=== PATIENT | male | born 1955 | race Caucasian/White ===

== ENCOUNTER 2021-04-20 07:37 | Outpatient (CLI) | payer MEDICARE, OTHER, SELFPAY ==
--- NOTE | 2021-04-20 10:15 | WPDPFTINT ---
PFT Procedure Performed PFT Procedure Performed Spirometry with Pre/Post Bronchodilator Plethysmography (Lung Vol) Diffusing Cap (DLCO) Flow Vol Loop PFT Interpretation Lung volumes were measured with the body plethysmography method. Lung volumes are unremarkable. Spirometry showed normal FVC and FEV1, a diminished FEV1 to FVC ratio 66%, and diminished mid expiratory flow rates at 39% predicted. Following administration of a bronchodilator there was significant increase in the FEV1. Impression: Mild obstructive airway disease in the form of small airway disease and significant response to bronchodilators on this testing.
== END 2021-04-20 07:38 | disposition home or self-care (01) ==
LOC: ANHPFT 07:38
PROVIDERS: PCP Internal Medicine; Visit Provider Internal Medicine Critical Care Medicine
DX: Z72.0 Tobacco use (principal); Z71.6 Tobacco abuse counseling; R94.2 Abnormal results of pulmonary function studies; J44.9 Chronic obstructive pulmonary disease, unspecified
CPT/HCPCS: 94060; 94726; 94729

== ENCOUNTER 2022-04-27 07:47 | Outpatient (CLI) | payer MEDICARE, OTHER, SELFPAY ==
--- NOTE | ~2022-04-27 | CT_ITS ---
EXAMINATION: CT lung screening DATE: 04/27/2022 08:05 INDICATION: ct lung screening TECHNIQUE: Computed tomography (CT) of the chest was performed without intravenous contrast. Addition al 3D reconstructions utilizing coronal maximum intensity projection (MIP) were performed. Automated exposure control and iterative reconstruction technique were employed. The dose-length product was 22 2.30 mGy-cm. COMPARISON: None FINDINGS: No suspicious pulmonary nodules, pulmonary edema, pneumonia or pleural effusion. There is diffuse mil d bronchial wall thickening. Heart size is normal. Atherosclerotic coronary artery calcific lesion. C hange of prior mediastinal main coronary artery bypass grafting. Stenting at the right coronary arter y. No pericardial effusion. Thoracic aorta is normal in caliber. No pathologically enlarged thoracic lymphadenopathy. Diffuse hepatic steatosis. Mild thoracic spondylosis with mild anterior wedging at T 11-L1. IMPRESSION: 1. Lung-RADS category 1: Negative. Continue annual screening with noncontrast low-dose chest CT in 12 months. Reviewed, dictated and finalized at location B. EDICAL ELECTRONICS TECHNICIAN IMPRESSION: 1. Lung-RADS category 1: Negative. Continue annual screening with noncontrast l ow-dose chest CT in 12 months.
== END 2022-04-27 07:48 | disposition home or self-care (01) ==
LOC: CHSIMG 07:49
PROVIDERS: PCP Internal Medicine; Visit Provider Nurse Practitioner Family
DX: Z87.891 Personal history of nicotine dependence (principal)
CPT/HCPCS: 71271

== ENCOUNTER 2022-06-01 08:10 | Outpatient (CLI) | payer MEDICARE, OTHER, SELFPAY ==
--- NOTE | ~2022-06-01 | XR_ITS ---
Lumbosacral Spine: AP and lateral views Clinical History: Pain Findings: The normal lordotic curve is maintained. The vertebral bodies and posterior elements are i ntact. The intervertebral disc spaces are preserved. The sacroiliac joints are normally outlined. Impression: No significant abnormality. Reviewed, dictated and finalized at [facility]. OPERATIONS ADVISOR Impression: No significant abnormality.
== END 2022-06-01 08:11 | disposition home or self-care (01) ==
LOC: CHSIMG 08:13
PROVIDERS: PCP Internal Medicine; Visit Provider Internal Medicine
DX: M54.50 Low back pain, unspecified (principal)
CPT/HCPCS: 72100

== ENCOUNTER 2022-07-26 00:25 | Day surgery (SDC) | payer MEDICARE, SELFPAY ==
[2022-07-14 14:42] VITALS: BMI 34.2
[2022-07-26 06:25] VITALS: BP 116/83; PULSE 62; RESP 20; TEMP 36.4; O2SAT 98; BMI 34.4
[2022-07-26] MEDS: LACTATED RINGERS 1,000 ML 150 ML IV CONT (06:31)
--- NOTE | 2022-07-26 07:14 | WPDANESEPPF ---
Anes - Initial Pre Proc Eval Procedure: Operation Date: 07/26/22 07:30 Proposed Procedures p Colonoscopy - Marv Bledsoe MD Date/Time: 07/26/22 07:14 Surgeon: Marv Bledsoe MD Pre Op Diagnosis: hx colon polyps Patient Data Age: 67 Gender: M Height: 1.68 m Weight: 96.8 kg Last Vital Signs Temp 97.6 F 07/26/22 06:25 Pulse 62 07/26/22 06:25 Resp 20 07/26/22 06:25 BP 116/83 07/26/22 06:25 Pulse Ox 98 07/26/22 06:25 O2 Del Method Room Air 07/26/22 06:25 Allergies Allergy/AdvReac Type Severity Reaction Status Date / Time No Known Allergies Allergy Verified 07/26/22 06:22 Home Medications Medication Instructions Recorded Confirmed Type aspirin 325 mg tablet 325 mg PO DAILY 02/10/21 07/14/22 History fenofibric acid (choline) 135 mg 135 mg PO DAILY 02/10/21 07/14/22 History capsule,delayed release hydrocodone 5 mg-acetaminophen 325 1 tablet PO BID 02/10/21 07/14/22 History mg tablet icosapent ethyl 0.5 gram capsule 0.5 g PO BID 02/10/21 07/14/22 History (Vascepa) isosorbide mononitrate 30 mg 30 mg PO DAILY 02/10/21 07/14/22 History tablet,extended release 24 hr lisinopril 10 mg tablet 10 mg PO DAILY 02/10/21 07/14/22 History metoprolol tartrate 25 mg tablet 25 mg PO BID 02/10/21 07/14/22 History qqlywrnx-mda-manwp acid 300 1 tablet PO DAILY 02/10/21 07/14/22 History mcg-lycopene 600 mcg-lutein 300 mcg tablet (Centrum Silver Men) rosuvastatin 40 mg tablet 40 mg PO DAILY 02/10/21 07/14/22 History albuterol sulfate 0.63 mg/3 mL 0.63 mg (3 mL) inhalation Q6H PRN 03/08/22 07/14/22 Rx solution for nebulization shortness of breath or wheezing 1 month #360 mL montelukast 10 mg tablet See Rx Instructions .Route 04/05/22 07/14/22 Rx .COMPLEX #90 tabs prednisone 10 mg tablet 10 mg PO DIRECTED #34 tabs 04/23/22 07/14/22 Rx albuterol sulfate 90 mcg/actuation 1 - 2 inh inhalation Q4-6H PRN 05/17/22 07/14/22 Rx aerosol inhaler shortness of breath or wheezing 90 days #25.5 grams gabapentin 600 mg tablet 600 mg PO TID 07/14/22 07/14/22 History lansoprazole 30 mg capsule,delayed 30 mg PO DAILY 07/14/22 07/14/22 History release sodium,potassium,mag sulfates 17.5 See Rx Instructions PO .COMPLEX 07/14/22 07/14/22 Rx gram-3.13 gram-1.6 gram oral soln #354 mL (Suprep Bowel Prep Kit) Patient hx anesthesia problems: none Family hx anesthesia problems: none Results Review: All pre-operative results and documents have been reviewed as part of the pre-operative evaluation. [facility] Past Medical History Medical History Asthma Heart disease Family History Family History Father Heart disease Sibling Heart disease Social History Social History (Updated 04/23/22 @ 09:01 by Cammy Alvarez MA) Smoking packs per day: 1 Smoking cigarettes per day: 20.0 Years smoked: 50 Smoking pack-years: 50.00 Smoking status: Current some day smoker Tobacco type: cigarettes Second hand tobacco smoke exposure: Yes Alcohol intake: former Drinks per week: 3 Alcohol use details: Beer Substance use: unknown Substance use type: does not use Living arrangements: with family Occupation/Education: retired Spiritual care concerns: No Anes - Eval Final PreProcedure Day of Procedure 07/26/22 07:14 Patient weight: obese Heart: regular rate and rhythm Lungs: clear to auscultation Neurological: alert and oriented Last oral intake: >/= 8 hours ASA classification: III Emergent: no Anesthetic plan: proceed Anesthesia type and monitoring: general GIVS and standard monitoring Results Review: All pre-operative results and documents have been reviewed as part of the pre-operative evaluation. Informed Consent: The patient's anesthetic plan and its attendant risks and benefits were discussed with the patient/family/POA. Questions w
[2022-07-26 07:44] VITALS: BP 116/83; PULSE 55; RESP 18; TEMP 36.4; O2SAT 100
--- NOTE | 2022-07-26 07:44 | PM.HPGS ---
History of Present Illness History of Present Illness Consent: Risks, benefits, and alternatives have been discussed and questions answered. Patient agrees to proceed with procedure. Chief complaint: hx colon polyps Narrative: Ozzie Shirley is a 67 year old male Presents for screening colonoscopy. Patient's current weight appetite bowel movements are normal. Patient denies abdominal pain. He has had no bleeding. Family history is noncontributory. Previous colonoscopy 2017 revealed a benign hyperplastic colon polyp. Review of Systems Review of Systems: Review of systems is noncontributory. [facility] Past Medical History Medical History Asthma Heart disease Family History Family History Father Heart disease Sibling Heart disease Social History Social History (Updated 04/23/22 @ 09:01 by Cammy Alvarez MA) Smoking packs per day: 1 Smoking cigarettes per day: 20.0 Years smoked: 50 Smoking pack-years: 50.00 Smoking status: Current some day smoker Tobacco type: cigarettes Second hand tobacco smoke exposure: Yes Alcohol intake: former Drinks per week: 3 Alcohol use details: Beer Substance use: unknown Substance use type: does not use Living arrangements: with family Occupation/Education: retired Spiritual care concerns: No Meds Home Medications and Allergies Home Medications Medication Instructions Recorded Confirmed Type aspirin 325 mg tablet 325 mg PO DAILY 02/10/21 07/14/22 History fenofibric acid (choline) 135 mg 135 mg PO DAILY 02/10/21 07/14/22 History capsule,delayed release hydrocodone 5 mg-acetaminophen 325 1 tablet PO BID 02/10/21 07/14/22 History mg tablet icosapent ethyl 0.5 gram capsule 0.5 g PO BID 02/10/21 07/14/22 History (Vascepa) isosorbide mononitrate 30 mg 30 mg PO DAILY 02/10/21 07/14/22 History tablet,extended release 24 hr lisinopril 10 mg tablet 10 mg PO DAILY 02/10/21 07/14/22 History metoprolol tartrate 25 mg tablet 25 mg PO BID 02/10/21 07/14/22 History wqjxuiix-whg-oiyac acid 300 1 tablet PO DAILY 02/10/21 07/14/22 History mcg-lycopene 600 mcg-lutein 300 mcg tablet (Centrum Silver Men) rosuvastatin 40 mg tablet 40 mg PO DAILY 02/10/21 07/14/22 History albuterol sulfate 0.63 mg/3 mL 0.63 mg (3 mL) inhalation Q6H PRN 03/08/22 07/14/22 Rx solution for nebulization shortness of breath or wheezing 1 month #360 mL montelukast 10 mg tablet See Rx Instructions .Route 04/05/22 07/14/22 Rx .COMPLEX #90 tabs prednisone 10 mg tablet 10 mg PO DIRECTED #34 tabs 04/23/22 07/14/22 Rx albuterol sulfate 90 mcg/actuation 1 - 2 inh inhalation Q4-6H PRN 05/17/22 07/14/22 Rx aerosol inhaler shortness of breath or wheezing 90 days #25.5 grams gabapentin 600 mg tablet 600 mg PO TID 07/14/22 07/14/22 History lansoprazole 30 mg capsule,delayed 30 mg PO DAILY 07/14/22 07/14/22 History release sodium,potassium,mag sulfates 17.5 See Rx Instructions PO .COMPLEX 07/14/22 07/14/22 Rx gram-3.13 gram-1.6 gram oral soln #354 mL (Suprep Bowel Prep Kit) Allergies Allergy/AdvReac Type Severity Reaction Status Date / Time No Known Allergies Allergy Verified 07/26/22 06:22 Vital Signs Vital Signs - 24 hr 07/26/22 06:25 Temperature 97.6 F Pulse Rate 62 Respiratory Rate 20 Blood Pressure 116/83 Pulse Oximetry 98 Oxygen Delivery Room Air Exam Narrative: Physical exam reveals patient to be alert. Vital signs stable. HEENT exam is unremarkable. Patient is anicteric. Lungs are clear to auscultation and percussion. Heart is without murmur or extra sounds. Abdomen bowel sounds are present soft nontender with no organomegaly. Digital external rectal exam is normal. Assessment and Plan Assessment and plan (1) Encounter for screening colonoscopy: Code(s): Z12.11 - Encounter for screening for iglesia
[2022-07-26 07:54] VITALS: BP 101/61; PULSE 55; RESP 20; TEMP 36.4; O2SAT 100
[2022-07-26 08:04] VITALS: BP 114/76; PULSE 57; RESP 18; TEMP 36.4; O2SAT 100
== END 2022-07-26 08:06 | disposition home or self-care (01) ==
PROVIDERS: PCP Internal Medicine; Visit Provider Internal Medicine Gastroenterology
PROC: 0DJD8ZZ Inspection of Lower Intestinal Tract, Via Natural or Artificial Opening Endoscopic (ICD-10-PCS; CPT 45378; principal; 2022-07-26 07:30)
DX: Z12.11 Encounter for screening for malignant neoplasm of colon (principal); K63.5 Polyp of colon; K64.8 Other hemorrhoids; K57.30 Diverticulosis of large intestine without perforation or abscess without bleeding; J45.909 Unspecified asthma, uncomplicated; I51.9 Heart disease, unspecified; F17.210 Nicotine dependence, cigarettes, uncomplicated; E66.9 Obesity, unspecified; Z68.34 Body mass index [BMI] 34.0-34.9, adult; Z79.82 Long term (current) use of aspirin; Z79.51 Long term (current) use of inhaled steroids
CPT/HCPCS: 45380; 88305; J2704; J7120

== ENCOUNTER 2022-07-29 07:50 | Outpatient (CLI) | payer MEDICARE, SELFPAY ==
--- NOTE | ~2022-07-29 | US_ITS ---
EXAMINATION: US renal BI DATE: 07/29/2022 08:23 INDICATION: Abnormal kidney function TECHNIQUE: Multiple grayscale and Doppler ultrasound images of the kidneys were obtained. COMPARISON: None. FINDINGS: The right kidney measures 11.2 x 5.1 x 6.0 cm. The left kidney measures 12.1 x 4.6 x 6.1. T he kidneys demonstrate normal parenchymal echogenicity. There is no hydronephrosis. The bladder is no rmal. IMPRESSION: 1. Normal kidneys without hydronephrosis. Reviewed, dictated and finalized at location L. ER/WAITRESS FORMAL
== END 2022-07-29 07:51 | disposition home or self-care (01) ==
LOC: CHSIMG 07:53
PROVIDERS: PCP Internal Medicine; Visit Provider Internal Medicine
DX: R94.4 Abnormal results of kidney function studies (principal)
CPT/HCPCS: 76775

== ENCOUNTER → 2023-03-22 13:19 | Outpatient (CLI) | payer MEDICARE, SELFPAY ==
--- NOTE | ~2023-03-22 | MR_ITS ---
MRI of the lumbar spine Clinical History: Back pain Technique: Axial T2-weighted images, and sagittal T1-weighted, T2-weighted, and and T2 fat-sat images were acquired. Findings: There is minimal grade 1 anterolisthesis of L4 over L5. No fracture seen. No suspicious bon e marrow signal abnormality seen. At L1-L2, there is no significant disc bulge or herniation. There is mild to moderate facet arthropat hy. No central canal stenosis or neural foraminal narrowing. At L2-L3, there is minimal disc bulge. There is moderate facet arthropathy. No central canal stenosis or neural foraminal narrowing. At L3-L4, there is moderate degenerative disc narrowing. There is mild diffuse disc bulge and moderat e to advanced facet arthropathy. No central canal stenosis. There is minimal right neural foraminal n arrowing. Left neural foramen preserved. At L4-L5, there is mild diffuse disc bulge and moderate to advanced facet arthropathy. No central can al stenosis or neural foraminal narrowing. At L5-S1, there is no significant disc bulge or herniation. There is moderate facet arthropathy. No c entral canal stenosis or neural foraminal narrowing. Paravertebral soft tissues are unremarkable. Impression: Mild degenerative spondylosis overall, as detailed above. Reviewed, dictated and finalized at [facility]. Impression: Mild degenerative spondylosis overall, as detailed above.
== END ==
PROVIDERS: PCP Internal Medicine; Visit Provider Internal Medicine
DX: M47.26 Other spondylosis with radiculopathy, lumbar region (principal)
CPT/HCPCS: 72148

== ENCOUNTER 2023-04-07 08:37 | Outpatient (RCR) | payer MEDICARE, SELFPAY ==
--- NOTE | 2023-04-07 09:49 | OPREHPOC ---
Outpatient Therapy Plan of Care This is a Multidisciplinary Plan of Care that may contain components documented by all disciplines (PT, OT, and ST.) PT Problem 1 PT Problem #1 Knowledge Deficit PT Goal 1 Goal 1. independent and compliant with HEP Target Visit 4 PT Problem 2 PT Problem #2 Impaired Strength PT Goal 1 Goal 1. improve bilateral hip strength to 4+/5 or better overall 2. improve L knee flexion to 5/5 3. patient to perform 5 situps 4. patient to display 3+/5 or better lower core strength Target Visit 9 PT Problem 3 PT Problem #3 Pain PT Goal 1 Goal 1. decrease pain at worst to 6/10 to improve quality of life and functional activity performance. Target Visit 9 PT Problem 4 PT Problem #4 Impaired Functional Mobil PT Goal 1 Goal 1. patient to tolerate standing for 2 hours or more at home 2. patient to walk 10 minutes without rest from more than 1200ft 3. oswestry to display less than 35% functional deficits 4. patient to safely squat and lift 30lbs from floor to waist Target Visit 9
--- NOTE | 2023-04-07 09:50 | PTOPEVAL1 ---
Assessment and note entered by JT File, PT Evaluation Information Assessment Status Evaluation Diagnosis lumbago Onset 03/31/23 Subjective Information patient reports he has arthritis in his lower back . he reports he is supposed to see a pain doctor next month. 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 he reports he does take naproxen sparingly as not to damage his kidneys. he reports he is also on hydrocodone for neuropathy pain in his feet. he reports he is unable to wear shoes/socks. he reports he has to wear house slippers on his feet to sleep. as far as the back goes, he has shooting pains across the back. he reports the pain will get worse with standing, but if he sits too long it will get worse as well. he reports he has to get all his work done standing before sitting or else he wont be able to get back up. he reports bending far forward into flexion will help relieve some pain. he reports he does not get any pain from the back radiating down to the legs. he reports he does have a tens machine at home. he reports holding a coffee pot will make his back shoot into pain. Reported Pain Level Pain Score 4: Self Report Assessment PT Clinical Summary mr. nicolas is a pleasant 67 yo man who presents to skilled PT for evaluation and treatment of lower back pain. he presents today with an acute flare up of chronic lower back. he displays poor core strength, weakness of the hips, and deficits in lifting and and standing/functional activities. he would benefit from continued skilled PT to address his objective/functional deficits and improve his activity endurance/functional strength to improve his quality of mae. Plan of Care Interventions Electrical Stimulation,Hot Pack/Cold Pack,Manual Therapy,Mechanical Traction,Neuro Re-education, Patient/Caregiver Educati,Therapeutic Activities, Therapeutic Exercise PT Services Indicated Yes Treatment Frequency and 3x weekly for 9 visits Duration These treatments will address the objective and functional deficits as defined above. The patient will be advanced safely and appropriately in order for the patient to progress towards his/her prior level of function. Additional exercises will be introduced and as well as a comprehensive home exercise program upon discharge, if needed, ?to ensure carryover of functional gains achieved in the clinic. This treatmen
--- NOTE | 2023-05-03 10:54 | OPREHPOC ---
Outpatient Therapy Plan of Care This is a Multidisciplinary Plan of Care that may contain components documented by all disciplines (PT, OT, and ST.) PT Problem 1 PT Problem #1 Knowledge Deficit PT Goal 1 Goal 1. independent and compliant with HEP Target Visit 4 Progress Met PT Problem 2 PT Problem #2 Impaired Strength PT Goal 1 Goal 1. improve bilateral hip strength to 4+/5 or better overall 2. improve L knee flexion to 5/5 3. patient to perform 5 situps 4. patient to display 3+/5 or better lower core strength Target Visit 9 Progress Not Met PT Problem 3 PT Problem #3 Pain PT Goal 1 Goal 1. decrease pain at worst to 6/10 to improve quality of life and functional activity performance. Target Visit 9 Progress Not Met PT Problem 4 PT Problem #4 Impaired Functional Mobil PT Goal 1 Goal 1. patient to tolerate standing for 2 hours or more at home 2. patient to walk 10 minutes without rest from more than 1200ft 3. oswestry to display less than 35% functional deficits 4. patient to safely squat and lift 30lbs from floor to waist Target Visit 9 Progress Not Met
--- NOTE | 2023-05-03 10:55 | PTOPDC ---
Assessment and note entered by JT File, PT Evaluation Information Assessment Status Discharge Diagnosis lumbago Onset 03/31/23 Subjective Information patient reports he is no better and reports he would like to be done with therapy. he reports he has been to see pain management, and has begun the process of having injections to the lower back, and a pain stimulator implanted in the lower back. eh reports after he takes the first few steps in the morning to get going his pain begins and is there all day. Reported Pain Level Pain Score 9: Self Report Assessment PT Clinical Summary mr. nicolas presents to skilled PT services for his 9th skilled PT visit. he presents with increased pain over the last 1-2 weeks. he reports he would like to DC therapy and seek care from pain management at this time. he has met only his goal for HEP performance, and no other goals for skilled PT. due to the increased pain/symptoms and lack of achievement of goals, he will be DC'd from skilled PT today and continue with pain management and HEP independent. Plan of Care PT Services Indicated Yes
== END 2023-05-03 15:26 | disposition home or self-care (01) ==
LOC: CHSPT 08:37
PROVIDERS: PCP Internal Medicine; Visit Provider Internal Medicine
DX: M54.9 Dorsalgia, unspecified (principal)
CPT/HCPCS: 97014; 97110; 97140; 97161; 97530; G0283

== ENCOUNTER 2023-05-20 08:11 | Outpatient (CLI) | payer MEDICARE, SELFPAY ==
--- NOTE | ~2023-05-20 | CT_ITS ---
EXAMINATION: CT lung screening DATE: 05/20/2023 08:28 INDICATION: Personal history of nicotine dependence TECHNIQUE: Computed tomography (CT) of the chest was performed without intravenous contrast. The dose -length product was 210.28 mGy-cm. Automated exposure control and iterative reconstruction technique were employed. COMPARISON: CT dated 04/27/2022 FINDINGS: Heart size normal. No thoracic lymphadenopathy. There is atherosclerosis of the aorta, grea t vessels and coronary arteries. No significant pleural or pericardial effusion. Upper abdomen is unr emarkable. Status post median sternotomy for CABG. No pulmonary nodules or masses. No endobronchial l esions. No airspace consolidation. No pneumothorax. IMPRESSION: 1. Lung-RADS category 1: Negative. Continue annual screening with noncontrast low-dose chest CT in 12 months. Reviewed, dictated and finalized at location B. NG OUT MACHINE OPERATOR IMPRESSION: 1. Lung-RADS category 1: Negative. Continue annual screening with noncontrast l ow-dose chest CT in 12 months.
== END 2023-05-20 08:12 | disposition home or self-care (01) ==
LOC: CHSIMG 08:13
PROVIDERS: PCP Internal Medicine; Visit Provider Nurse Practitioner Family
DX: Z12.2 Encounter for screening for malignant neoplasm of respiratory organs (principal); Z87.891 Personal history of nicotine dependence
CPT/HCPCS: 71271

== ENCOUNTER 2023-12-02 09:39 | Outpatient (CLI) | payer MEDICARE, SELFPAY ==
--- NOTE | ~2023-12-02 | XR_ITS ---
EXAMINATION: XR hip LT min 2V DATE: 12/02/2023 10:01 INDICATION: Chronic left hip pain. TECHNIQUE: 2 views of left hip were obtained. COMPARISON: None. FINDINGS: Bone alignment is normal. No fracture. There is mild left hip osteoarthritis. IMPRESSION: 1. Mild left hip osteoarthritis. Reviewed, dictated and finalized at location A.
--- NOTE | ~2023-12-02 | XR_ITS ---
EXAMINATION: XR hip RT min 2V DATE: 12/02/2023 10:01 INDICATION: Chronic right hip pain. TECHNIQUE: 2 views of right hip were obtained. COMPARISON: None. FINDINGS: Bone alignment is normal. No fracture. Right hip joint space is normal. IMPRESSION: 1. Normal right hip. Reviewed, dictated and finalized at location A. IMPRESSION: 1. Normal right hip.
--- NOTE | ~2023-12-02 | XR_ITS ---
XR sacroiliac joints min 3V Ordering provider: Clemente Kirby MD History: . B/L Chronic Hip Pain . Comparison: None. FINDINGS: BONES: Longitudinal lucency is seen in the left superior pubic ramus near to the acetabulum which may be summation shadow. Evaluation for tenderness in this area is advised. Otherwise, No acute fracture or dislocation. JOINTS: The bilateral sacroiliac joint spaces appear well maintained. No bony fusion of the sacroilia c joints or bony erosions. SOFT TISSUES: Unremarkable. IMPRESSION: NO ACUTE OSSEOUS ABNORMALITY. NORMAL SACROILIAC JOINTS. Lucency which may be a summation shadow is seen in the left superior pubic ramus. Clinical evaluation for tenderness in the area is advised. Reviewed, dictated and finalized at location A. IMPRESSION: NO ACUTE OSSEOUS ABNORMALITY. NORMAL SACROILIAC JOINTS. Lucency which may be a summation shadow is seen in the left superior pubic ximena s. Clinical evaluation for tenderness in the area is advised.
== END 2023-12-02 09:40 | disposition home or self-care (01) ==
LOC: CHSIMG 09:41
PROVIDERS: PCP Internal Medicine; Visit Provider Internal Medicine
DX: M25.552 Pain in left hip (principal); M25.551 Pain in right hip; M16.12 Unilateral primary osteoarthritis, left hip
CPT/HCPCS: 72202; 73502

== ENCOUNTER 2024-05-31 07:22 | Outpatient (CLI) | payer MEDICARE, SELFPAY ==
--- NOTE | ~2024-05-31 | CT_ITS ---
CT Scan of the Chest without Contrast: Clinical Indication: Lung cancer screening, nicotine dependence Technique: Contiguous sections were acquired throughout the chest without intravenous contrast. Dose reduction technique was used on this scan by utilizing automated exposure control and iterative recon struction technique. The dose-length product (DLP) was 156.10 mGy-cm. COMPARISON: 05/20/2023 Findings: There is no evidence of any significant mediastinal, hilar or axillary lymphadenopathy. Extensive cor onary artery calcification present. There is no evidence of pleural or pericardial effusion. The lungs are clear. No pulmonary nodules or infiltrates are noted. Images through the upper abdomen reveal no abnormalities. Impression: Lung RADS 1: Negative. 12 month follow-up screening CT advised. Reviewed, dictated and finalized at location . ING MACHINE OPERATOR Impression: Lung RADS 1: Negative. 12 month follow-up screening CT advised.
== END 2024-05-31 07:23 | disposition home or self-care (01) ==
PROVIDERS: PCP Internal Medicine; Visit Provider Nurse Practitioner Family
DX: Z12.2 Encounter for screening for malignant neoplasm of respiratory organs (principal); Z87.891 Personal history of nicotine dependence
CPT/HCPCS: 71271